=== PATIENT | male | born 1960 | race Caucasian/White ===

== ENCOUNTER 2017-04-15 11:50 | Emergency (ER) | payer OTHER ==
[~2017-04-15] VITALS: Ht 198.1 cm; Wt 129.3 kg
[2017-04-15 12:19] VITALS: BP 161/94
[2017-04-15] MEDS ORDERED: SUMAtriptan SUCCINATE 6 MG/0.5 ML VL SC ONE (12:45)
[2017-04-15] MEDS ORDERED: PROMETHAZINE HCL 25 MG/ML 1ML IM ONE (12:45)
[2017-04-15] MEDS ORDERED: MORPHINE SULF INJ 2 MG/ML SYRINGE 1ML IM ONE (12:45)
== END 2017-04-15 13:51 | disposition home or self-care (01) ==
LOC: ER 11:50
DX: G43.909 Migraine, unspecified, not intractable, without status migrainosus (principal); K21.9 Gastro-esophageal reflux disease without esophagitis; I10 Essential (primary) hypertension
CPT/HCPCS: 96372; 99284; J2270; J2550; J3030

== ENCOUNTER 2018-08-14 03:26 | Emergency (ER) | payer BC, OTHER ==
[~2018-08-14] VITALS: Ht 198.1 cm; Wt 122.5 kg
[2018-08-14 07:18] VITALS: BP 164/97
== END 2018-08-14 07:42 | disposition home or self-care (01) ==
LOC: ER 03:29
DX: M75.31 Calcific tendinitis of right shoulder (principal); I10 Essential (primary) hypertension; K21.9 Gastro-esophageal reflux disease without esophagitis; F12.10 Cannabis abuse, uncomplicated; Z88.1 Allergy status to other antibiotic agents; Z53.29 Procedure and treatment not carried out because of patient's decision for other reasons
CPT/HCPCS: 73030

== ENCOUNTER 2020-01-14 13:47 | Emergency (ER) | payer BC ==
[~2020-01-14] VITALS: Ht 198.1 cm; Wt 115.7 kg
[2020-01-14 13:54] VITALS: BP 141/93
[2020-01-14] MEDS ORDERED: KETOROLAC TROMETH 60MG/2ML VIAL IM ONE (14:45)
[2020-01-14] MEDS ORDERED: PROMETHAZINE HCL 25 MG/ML 1ML IM ONE (14:45)
[2020-01-14] MEDS ORDERED: SUMAtriptan SUCCINATE 6 MG/0.5 ML VL SC ONE (14:45)
== END 2020-01-14 15:41 | disposition home or self-care (01) ==
LOC: ER 13:47
DX: G43.909 Migraine, unspecified, not intractable, without status migrainosus (principal); K21.9 Gastro-esophageal reflux disease without esophagitis; I10 Essential (primary) hypertension
CPT/HCPCS: 70450; 96372; 99284; J1885; J2550; J3030